=== PATIENT | female | born 1960 | race Caucasian/White ===

== ENCOUNTER 2016-12-06 14:54 | Emergency (ER) | payer OTHER ==
[2016-12-06 15:03] VITALS: BP 148/91
--- NOTE | 2016-12-06 15:24 | UC ---
Knee Pain HPI - HPI Summary HPI Summary: 56 yo female fell in [place] 2 days ago unable to bear wt injury to left knee abraided right elbow and right hand no headache or neck pain no CP or SOB - History of Current Complaint Chief Complaint: UCTrauma Stated Complaint: KNEE INJURY Time Seen by Provider: 12/06/16 15:14 Hx Obtained From: Patient Onset/Duration: Sudden Onset, Lasting Days Severity Initially: Severe Severity Currently: Moderate Pain Intensity: 4 Pain Scale Used: 0-10 Numeric Character: Throbbing, Spasmodic Aggravating Factor(s): Movement, Weight Bearing, Prolonged Standing, Stairs Alleviating Factor(s): Rest Associated Signs And Symptoms: Positive: Swelling, Bruising Able to Bear Weight: Yes - with marked pain - Allergies/Home Medications Allergies/Adverse Reactions: Allergies Allergy/AdvReac Type Severity Reaction Status Date / Time No Known Allergies Allergy Verified 12/06/16 15:04 Home Medications: Home Medications buPROPion TAB* [Wellbutrin TAB*] 1 cap PO DAILY 12/06/16 [History Confirmed ] PMH/Surg Hx/FS Hx/Imm Hx Previously Healthy: Yes Respiratory History: Other - sarcoidosis Other Respiratory History: sarcoid Other History Of: Negative For: Anticoagulant Therapy - Surgical History Surgical History: Yes Surgery Procedure, Year, and Place: rt knee surgery age 13, 20 yra ago thoracotomy, partial hysterectomy, gland removed from neck,mole removal nose, rt ear mole removed, - Family History Known Family History: Positive: Other - son has Marfan's Negative: Cardiac Disease, Hypertension, Diabetes - Social History Alcohol Use: Rare Substance Use Type: Prescribed Smoking Status (MU): Former Smoker - Immunization History Most Recent Influenza Vaccination: 2011 Most Recent Tetanus Shot: unknown Review of Systems Constitutional: Negative Skin: Negative Eyes: Negative ENT: Negative Respiratory: Negative Cardiovascular: Negative Gastrointestinal: Negative Genitourinary: Negative Motor: Negative Neurovascular: Negative Musculoskeletal: Arthralgia Neurological: Negative Psychological: Negative Is Patient Immunocompromised?: No All Other Systems Reviewed And Are Negative: Yes Physical Exam Triage Information Reviewed: Yes Appearance: Well-Appearing, No Pain Distress, Well-Nourished Vital Signs: Initial Vital Signs Temp 98.9 F 12/06/16 14:58 Pulse 99 12/06/16 14:58 Resp 18 12/06/16 14:58 BP 148/91 12/06/16 14:58 Pulse Ox 97 12/06/16 14:58 Vital Signs Reviewed: Yes Eyes: Positive: Conjunctiva Clear ENT: Positive: Hearing grossly normal. Negative: Nasal congestion, Nasal drainage, Trismus, Muffled/hoarse voice Neck: Positive: Supple, Nontender Respiratory: Positive: Lungs clear, Normal breath sounds, No respiratory distress Cardiovascular: Positive: RRR, No Murmur Musculoskeletal: Positive: Other: - see image Neurological: Positive: Alert Psychological Exam: Normal Skin: Positive: rashes Diagnostics - Radiology No standard instances Xray Interpretation: No Acute Changes Radiology Interpretation Completed By: ED Physician Knee Pain Course/Dx - Course Course Of Treatment: pt refuses my suggestion of knee immobilizer. she declines crutches. I explained that despite not seeing any fx she could have a ligament or cartilage injury - Differential Dx/Diagnosis Provider Diagnoses: left knee contusion. ? internal derrangement. multiple abrasions Discharge - Discharge Plan Condition: Stable Disposition: HOME Prescriptions: HYDROcodone/ACETAMIN 5-325 MG* [[place] 5-325 TAB*] 1 tab PO Q4H PRN #12 tab MDD 3 PRN Reason: Pain Patient Education Materials: Swollen Knee Joint (ED) Referrals: Angel Pineda MD [Medical Doctor] - As Soon As Possible Sanjeev Ruiz MD [Primary Care Provider] - Additional Instructions: rest elevate ice continue ibuprofen take narcotic sparingly Images Front/Back of Body, Lg ([place]): 1 - swollen/tender patella as well as medial and lateral joint line 2 - abrasions
--- NOTE | 2016-12-06 17:09 | RAD ---
Indication: Left knee pain. 4 views of left knee demonstrates no fracture. No joint effusion is noted. This calcification along the quadriceps tendon. IMPRESSION: No fracture of the left knee is noted.
== END 2016-12-06 16:40 | disposition home or self-care (01) ==
LOC: UCEAST 14:54
DX: S80.02XA Contusion of left knee, initial encounter (principal); S50.311A Abrasion of right elbow, initial encounter; S60.511A Abrasion of right hand, initial encounter; W19.XXXA Unspecified fall, initial encounter; Y93.9 Activity, unspecified; Y92.9 Unspecified place or not applicable; D86.9 Sarcoidosis, unspecified; Z90.711 Acquired absence of uterus with remaining cervical stump; Z87.891 Personal history of nicotine dependence
CPT/HCPCS: 99212; G0463